=== PATIENT | female | born 1985 | race African-American/Black ===

== ENCOUNTER 2019-01-19 13:58 | Emergency (ER) | payer OTHER ==
--- NOTE | 2019-01-19 14:15 | PDOC ---
History of Present Illness - General Chief Complaint: Chest Pain Stated Complaint: CHEST PAIN Time Seen by Provider: 01/19/19 14:08 History Source: Patient, Significant Other - History of Present Illness Initial Comments: 01/19/19 14:18 Ms. Dahl is a 33 y/o woman with hx hypothyroidism p/w two days of chest tightness. She reports that last night she was doing laundry at home, when she walked up a flight of steps and began to notice a squeezing sensation in her chest. She reports laying down to go to bed shortly after, and sleeping through the night. She denies any chest pain, shortness of breath, nausea, vomiting, headache, vision changes at that time. This morning she presented to work ([employer]) when she began to note some chest pressure, palpitations, and tightness behind her eyes. She denies any changes in vision. She reports that a coworker checked her BP and found it to be 155/90. She reports that the physician she was working with noted that she "didn't seem like herself", and encouraged her to seek evaluation at an urgent care. She presented to urgent care, and after evaluating her EKG they sent her to the ED for further evaluation. EKG notable for J point elevations in V2-V5. Past History - Past Medical History Allergies/Adverse Reactions: Allergies Allergy/AdvReac Type Severity Reaction Status Date / Time shellfish derived Allergy Intermediate Itching Verified 01/19/19 13:59 Home Medications: Ambulatory Orders Levothyroxine [Synthroid -] 75 mcg PO DAILY 01/19/19 COPD: No Seizures: Yes - Suicide/Smoking/Psychosocial Hx Smoking History: Never smoked Information on smoking cessation initiated: No Hx Alcohol Use: Yes (SOCIAL) Drug/Substance Use Hx: No Review of Systems - Review of Systems Able to Perform ROS?: Yes Comments:: 01/19/19 17:54 ROS: GENERAL/CONSTITUTIONAL: No fever or chills. No weakness. HEAD, EYES, EARS, NOSE AND THROAT: No change in vision. No ear pain or discharge. No sore throat. CARDIOVASCULAR: Chest tightness. No chest pain or shortness of breath RESPIRATORY: No cough, wheezing, or hemoptysis. GASTROINTESTINAL: No nausea, vomiting, diarrhea or constipation. GENITOURINARY: No dysuria, frequency, or change in urination. MUSCULOSKELETAL: No joint or muscle swelling or pain. No neck or back pain. SKIN: No rash NEUROLOGIC: No headache, vertigo, loss of consciousness, or change in strength/ sensation. ENDOCRINE: No increased thirst. No abnormal weight change HEMATOLOGIC/LYMPHATIC: No anemia, easy bleeding, or history of blood clots. ALLERGIC/IMMUNOLOGIC: No hives or skin allergy. *Physical Exam - Vital Signs Last Vital Signs Temp Pulse Resp BP Pulse Ox 98.1 F 76 16 148/72 100 01/19/19 13:59 01/19/19 13:59 01/19/19 13:59 01/19/19 13:59 01/19/19 13:59 - Physical Exam Comments: 01/19/19 17:54 PE: GENERAL: Awake, alert, and fully oriented, in no acute distress HEAD: No signs of trauma, normocephalic, atraumatic EYES: PERRLA, EOMI, sclera anicteric, conjunctiva clear ENT: Auricles normal inspection, hearing grossly normal, nares patent, oropharynx clear without exudates. Moist mucosa NECK: Normal ROM, supple, no lymphadenopathy, JVD, or masses LUNGS: No distress, speaks full sentences, clear to auscultation bilaterally HEART: Regular rate and rhythm, normal S1 and S2, no murmurs, rubs or gallops, peripheral pulses normal and equal bilaterally. ABDOMEN: Soft, nontender, normoactive bowel sounds. No guarding, no rebound. No masses EXTREMITIES : Normal inspection, Normal range of motion, no edema. No clubbing or cyanosis NEUROLOGICAL: Cranial nerves II through XII grossly intact. Normal speech, normal gait, no focal sensorimotor deficits SKIN: Warm, Dry, normal turgor, no rashes or lesions noted ED Treatment Course - LABORATORY CBC & Chemistry Diagram: 01/19/19 14:56 01/19/19 14:56 Medical Decision Making - Medical Decision Making 01/19/19 15:01 33 F with hx hypothyroidism p/w one day of chest tightness, J point elevations likely indicative of early repolarization. ACS unlikely given lack of pain, and EKG more indicative of early repolarization, but still possible. Plan: CBC CMP CXR EKG Cardiac profile Dispo: Likely home 01/19/19 16:13 Troponin negative 01/19/19 17:45 Second troponin negative, plan for discharge with close PCP follow up *DC/Admit/Observation/Transfer Diagnosis at time of Disposition: Chest pain Qualifiers: Chest pain type: unspecified Qualified Code(s): R07.9 - Chest pain, unspecified - Discharge Dispostion Disposition: HOME Condition at time of disposition: Stable Decision to Admit order: No - Referrals - Patient Instructions Printed Discharge Instructions: DI for Chest Pain Additional Instructions: You were seen in the emergency department for chest tightness. We rechecked your EKG and your blood work, which returned normal. We repeated your troponin level - a protein that rises in the blood when the heart is under stress, and both of the troponin levels that we checked were negative. Please follow up with your primary care provider in the next seven days, or as soon as possible. Please return to the emergency department if you develop severe chest pain, trouble breathing, experience sudden changes in vision, or pass out or feel that you are about to pass out. - Post Discharge Activity
[2019-01-19 14:18] VITALS: BP 148/72; PULSE 76; TEMP 98.1; BMI 36.6
--- NOTE | 2019-01-19 14:28 | PDOC ---
Attending Attestation - Resident Resident Name: AndreRaul - ED Attending Attestation I have performed the following: I have examined & evaluated the patient, The case was reviewed & discussed with the resident, I agree w/resident's findings & plan, Exceptions are as noted - HPI HPI: 01/19/19 14:25 33y F hx of hypothyroidism presents with 1 day of chest pain - started last night, noted some mild mid sternal chest tightness when going up her stairs. Today at work, she noted mild pressure around her eyes, but denies headache, vision changes, numbness/tingling/weakness - had her BP check by the MD she workd with who noticed she is ab it hypertnsion. She went to urgent care who checked and EKG and noticed CARMEL in V2 and on the lateral laeds but with some j point elevations. Pt denies any abdominal pain , n/v, diaphoresis, palpitations , sob, [place], cough, hemoptysis, leg swelling, bpr, melena, dysuria, fever/ chills. Pt esmer any current cp, last episode resolved while n urgent care. Family Hx: Father with Prostate ca, Mom with htn, no family hx of CAD Social Hx: denies smoking, vaping, recreational drugs, etoh abuse 01/19/19 16:18 - Physicial Exam PE: 01/19/19 15:38 Physical exam: General: Well apeparing, No distress Pulm: CTA l Card: rrr, no mrg Abd: soft nontender, no cva tenderness Ext: no edema Neuro: moving all 4 ext spontaneously and symmetrically, normal gait - Medical Decision Making 01/19/19 15:39 few risk factors and atypical story for acs suspect ekg finding they saw is related to MARGO will obtain trop x 2, cxr 01/19/19 16:19 labs reviewed pt still asymptmoatic will obtain 2nd trop at 5pm 01/19/19 18:19 2nd trop neg pt feeling well, asymptomatic will have pt fu with pmd return precautions were discussed Heart Score/ECG Review - ECG Impressions Comment:: 01/19/19 15:40 Twelve-lead EKG was performed and reviewed by me. There is normal sinus rhythm with a normal rate. Rate of 74 Early repolarization (CARMEL with J point elevation on atnerior/lateral leads)
[2019-01-19 15:10] LABS: BASO % 0.5 % (0-2.0); EOS % 3.7 % (0-4.5); HEMATOCRIT 33.3 % (32.4-45.2); HEMOGLOBIN 11.4 GM/dl (10.7-15.3); LYMPH % 40.9 % (8-40); MCH 30.8 pg (25.7-33.7); MCHC 34.3 g/dl (32.0-36.0); MEAN PLT VOLUME 9.2 fl (7.5-11.1); MONO % 8.7 % (3.8-10.2); NEUT % 46.2 % (42.8-82.8); PLATELET COUNT 253 K/MM3 (134-434); RDW 13.3 % (11.6-15.6)
[2019-01-19 15:50] LABS: ALBUMIN 3.8 g/dl (3.4-5.0); BILIRUBIN,TOTAL 0.1 mg/dl (0.2-1); CALCIUM 8.5 mg/dl (8.5-10); CREATININE 0.6 mg/dl (0.55-1.3); POTASSIUM 4.1 mmol/L (3.5-5.1); TOT PROT 7.5 g/dl (6.4-8.2)
--- NOTE | 2019-01-20 15:16 | EKG ---
Test Reason : Blood Pressure : / mmHG Vent. Rate : 074 BPM Atrial Rate : 074 BPM P-R Int : 150 ms QRS Dur : 092 ms QT Int : 412 ms P-R-T Axes : 047 041 029 degrees QTc Int : 457 ms NORMAL SINUS RHYTHM MINIMAL VOLTAGE CRITERIA FOR LVH, MAY BE NORMAL VARIANT EARLY REPOLARIZATION BORDERLINE ECG NO PREVIOUS ECGS AVAILABLE Confirmed by MD MCKEE MOYSES ([id number]) on 01/20/2019 3:15:45 PM Referred By: MINDY HERNÁNDEZ Confirmed By:SAE MCKEE MD
== END 2019-01-19 17:54 | disposition home or self-care (01) ==
LOC: FER 13:58
DX: R07.9 Chest pain, unspecified (principal); E03.9 Hypothyroidism, unspecified; R56.9 Unspecified convulsions
CPT/HCPCS: 36415; 71046-TC-FY; 80053; 82550; 84484; 84703; 85025; 93005; 99283-25

== ENCOUNTER 2021-02-10 04:20 | Day surgery (SDC) | payer OTHER ==
[2021-02-06 16:53] VITALS: BMI 34.7
[2021-02-10] MEDS ORDERED: VASOPRESSIN 20 UNITS/ML VIAL IV ONE ×2 (07:40→08:00)
[2021-02-10] MEDS ORDERED: LIDOCAINE HCL/PF 2% SDV 5ML VIAL ONE (07:46)
[2021-02-10] MEDS ORDERED: DEXAMETHASONE SOD PHOSPHATE 4 MG/1 ML VIAL ONE (07:46)
[2021-02-10] MEDS ORDERED: ONDANSETRON 4 MG/2 ML VIAL ONE (07:46)
[2021-02-10] MEDS ORDERED: MIDAZOLAM HCL 2 MG/2 ML SINGLE DOSE VIAL ONE (07:47)
[2021-02-10] MEDS ORDERED: PROPOFOL 20 ML ONE ×2 (07:47)
[2021-02-10] MEDS ORDERED: IBUPROFEN 600 MG TABLET (FP) PO PRN (07:48)
[2021-02-10] MEDS ORDERED: ONDANSETRON 4 MG/2 ML VIAL IVPUSH PRN (07:48)
[2021-02-10] MEDS ORDERED: IBUPROFEN 800 MG/8 ML IJ IVPB PRN (07:48)
[2021-02-10] MEDS ORDERED: oxyCODONE HCL 5 MG TABLET PO PRN (07:48)
[2021-02-10] MEDS ORDERED: ELECTROLYTE-148 SOLN 1,000 ML IV SCH (08:00)
[2021-02-10] MEDS ORDERED: KETOROLAC TROMETHAMINE 30 MG/1 ML VIAL ONE (08:26)
[2021-02-10] MEDS ORDERED: LACTATED RINGERS SOLUTION 1,000 ML IV SCH (09:30)
[2021-02-10 14:36] VITALS: BP 122/60; PULSE 75; TEMP 98.7
== END 2021-02-10 13:30 | disposition home or self-care (01) ==
LOC: JASU-SURG 04:20
PROVIDERS: ATTEND Obstetrics & Gynecology
PROC: 0UB98ZZ Excision of Uterus, Via Natural or Artificial Opening Endoscopic (ICD-10-PCS; principal; 2021-02-10 07:30)
DX: N92.0 Excessive and frequent menstruation with regular cycle (principal); D25.0 Submucous leiomyoma of uterus
CPT/HCPCS: 81025; 94760

== ENCOUNTER 2024-02-14 04:01 | Day surgery (SDC) | payer BC ==
[2024-02-10 13:34] VITALS: BMI 33.9
[2024-02-14] MEDS ORDERED: ONDANSETRON 4 MG/2 ML VIAL IVPUSH PRN (07:40)
[2024-02-14] MEDS ORDERED: oxyCODONE HCL 5 MG TABLET PO PRN (07:40)
[2024-02-14] MEDS ORDERED: IBUPROFEN 600 MG TABLET (FP) PO PRN (07:40)
[2024-02-14] MEDS ORDERED: IBUPROFEN 800 MG/8 ML IJ IVPB PRN (07:40)
[2024-02-14] MEDS ORDERED: ELECTROLYTE-148 SOLN 1,000 ML IV SCH (07:45)
[2024-02-14] MEDS ORDERED: PROPOFOL 20 ML ONE (07:49)
[2024-02-14] MEDS ORDERED: DEXAMETHASONE SOD PHOSPHATE 4 MG/1 ML VIAL ONE (07:49)
[2024-02-14] MEDS ORDERED: KETOROLAC TROMETHAMINE 30 MG/1 ML VIAL ONE (07:49)
[2024-02-14] MEDS ORDERED: MIDAZOLAM HCL 2 MG/2 ML SINGLE DOSE VIAL ONE (07:49)
[2024-02-14] MEDS ORDERED: PHENYLEPHRINE HCL 10 MG/1 ML SINGLE DOSE VIAL ONE (07:56)
[2024-02-14] MEDS ORDERED: LACTATED RINGERS SOLUTION 1,000 ML IV SCH (08:45)
[2024-02-14 11:46] VITALS: BP 112/73; PULSE 52
[2024-02-14 11:49] VITALS: RESP 14; TEMP 97.5
== END 2024-02-14 12:32 | disposition home or self-care (01) ==
LOC: JASU-SURG 04:01
PROVIDERS: ATTEND Obstetrics & Gynecology
PROC: 0UB98ZZ Excision of Uterus, Via Natural or Artificial Opening Endoscopic (ICD-10-PCS; principal; 2024-02-14 07:30)
DX: D25.0 Submucous leiomyoma of uterus (principal)
CPT/HCPCS: 81025; 86850; 86900; 86901; 88305-TC; 94760